=== PATIENT | male | born 1970 | race Hispanic/Latino ===

== ENCOUNTER 2022-02-26 06:14 | Inpatient (IN) | payer OTHER, SELFPAY ==
[2022-02-26] MEDS ORDERED: Morphine 4 MG/ML VIAL ONE (06:37)
[2022-02-26] MEDS ORDERED: Ketorolac Tromethamine 30 MG/ML VIAL ONE ×3 (06:37→13:46)
[2022-02-26] MEDS ORDERED: Ondansetron PF 4 MG/2 ML Vial ONE ×2 (06:37→12:17)
[2022-02-26 07:38] LABS: #Basophils 0.1 10x3/uL (0.0-0.2); #Eosinphils 0.1 10x3/uL (0.0-0.5); #Monocytes 0.7 10x3/uL (0.0-1.1); #Neutrophils 9.8 10x3/uL (1.5-8.4); %Basophils 0.4 % (0.0-2.0); %Eosinophils 0.8 % (0.0-6.0); %Lymphocytes 24.7 % (18.0-47.0); %Monocytes 4.8 % (0.0-10.0); %Neutrophils 68.7 % (40.0-75.0); Mean Corpuscular HGB CONC 32.6 g/dL (32.0-36.0); Mean Corpuscular Hemoglobin 28.5 pg (27.0-33.0); Mean Corpuscular Volume 87.4 fl (81.2-95.1); Mean Platelet Volume 10.7 fl (7.4-10.4); Platelet Count 275 10x3/uL (150-450); Red Blood Cell (RBC) Count 5.97 10x6/uL (4.32-5.72); White Blood Cell (WBC) Count 14.2 10x3/uL (3.5-10.5)
[2022-02-26 07:43] LABS: ALT (SGPT) 17 U/L (8-55); AST (SGOT) 14 U/L (5-34); Albumin 4.4 g/dL (3.5-5.0); Alkaline Phosphatase 74 U/L (40-110); Anion Gap 17 mmol/L (10-20); BUN (Urea Nitrogen) 12 mg/dL (8.9-20.6); Bilirubin, Total 0.8 mg/dL (0.2-1.2); Calc. Creatinine Clearance 0 mL/min (70-130); Calcium 9.7 mg/dL (7.8-10.44); Carbon Dioxide 26 mmol/L (22-29); Chloride 101 mmol/L (98-107); Globulin 3.9 g/dL (2.4-3.5); Glucose 145 mg/dL (70-105); Lipase 11 U/L (8-78); Potassium 4.3 mmol/L (3.5-5.1); Protein, Total 8.3 g/dL (6.0-8.3); Sodium 140 mmol/L (136-145)
[2022-02-26] MEDS ORDERED: Levofloxacin 500 mg/D5W 100 ml Premix Bag ONE (09:11)
[2022-02-26 10:35] LABS: SARS-CoV-2 NAA Rapid Test Not Detected (NotDetected)
[2022-02-26] MEDS ORDERED: Dexamethasone 4 mg/ml Vial ONE (12:17)
[2022-02-26] MEDS ORDERED: Rocuronium Bromide 10 MG/ML (10ML VIAL) ONE (12:17)
[2022-02-26] MEDS ORDERED: PROPOFOL 20 ML ONE (12:17)
[2022-02-26] MEDS ORDERED: Fentanyl 100 MCG/2 ML VIAL ONE (12:17)
[2022-02-26] MEDS ORDERED: Lidocaine 1% PF 5 ML VIAL ONE (12:17)
[2022-02-26] MEDS ORDERED: EPINEPHrine 1 MG/ML AMP ONE (12:53)
[2022-02-26] MEDS ORDERED: Bupivacaine 0.25% HCL 30 ML VIAL ONE (12:53)
[2022-02-26] MEDS ORDERED: PHENYLEPHRINE-NS 100 MCG/ML 10 ML SYRINGE ONE (12:54)
== END 2022-02-26 14:50 | disposition home or self-care (01) | DRG 419 ==
LOC: CSHERS 06:14 → CSHERHOLD 09:50
PROVIDERS: ADMIT Specialist; ATTEND Specialist
PROC: 0FT44ZZ Resection of Gallbladder, Percutaneous Endoscopic Approach (ICD-10-PCS; principal; 2022-02-26)
DX: K80.12 Calculus of gallbladder with acute and chronic cholecystitis without obstruction (principal); F17.210 Nicotine dependence, cigarettes, uncomplicated; Z20.822 Contact with and (suspected) exposure to COVID-19
CPT/HCPCS: 71045; 76705; 80053; 83690; 84484; 85025; 88304; 93005; 96365; 96375; C1713; J0171; J1100; J1885; J1956; J2270; J2405; J2704; J3010; S0020; U0002